=== PATIENT | female | born 1995 | race Caucasian/White ===

== ENCOUNTER 2017-10-25 00:20 | Emergency (ER) | payer MEDICAID ==
[2017-10-25] MEDS ORDERED: ACETAMINOPHEN 325 MG TABLET PO ONE (01:17)
--- NOTE | 2017-10-25 01:19 | ER Document Report ---
ED Medical Screen (RME) - General Chief Complaint: Possible Kidney Stone Stated Complaint: FLANK PAIN Time Seen by Provider: 10/25/17 01:14 Mode of Arrival: Ambulatory Information source: Patient Notes: 22-year-old female presents to ED for complaint of right flank pain. She states she was recently admitted for a kidney infection. She is also 11 weeks . She states she just finished the antibiotics they gave her a couple days ago from the last infection. She denies any fevers at this time. Patient does not have any tenderness to palpation to the kidney area at this time. She is alert and oriented respirations regular and unlabored speaking in full sentences. I have greeted and performed a rapid initial assessment of this patient. A comprehensive ED assessment and evaluation of the patient, analysis of test results and completion of medical decision making process will be conducted by an additional ED providers. TRAVEL OUTSIDE OF THE [place] IN LAST 30 DAYS: No - Related Data Allergies/Adverse Reactions: No Known Allergies Allergy (Verified 10/25/17 00:25) Past Medical History - Social History Chew tobacco use (# tins/day): No Frequency of alcohol use: None Drug Abuse: None Pulmonary Medical History: Reports: Hx Asthma Renal/ Medical History: Denies: Hx Peritoneal Dialysis Psychiatric Medical History: Denies: Hx Depression Past Surgical History: Reports: Hx Tonsillectomy - Addenoids as well. - Immunizations Immunizations up to date: Yes Hx Diphtheria, Pertussis, Tetanus Vaccination: Yes Physical Exam - Vital signs Vitals: Temp Pulse Resp BP Pulse Ox 97.6 F 100 18 112/61 99 10/25/17 00:35 10/25/17 00:35 10/25/17 00:35 10/25/17 00:35 10/25/17 00:35 Course - Vital Signs Vital signs: Temp Pulse Resp BP Pulse Ox 97.6 F 100 18 112/61 99 10/25/17 00:35 10/25/17 00:35 10/25/17 00:35 10/25/17 00:35 10/25/17 00:35
[2017-10-25 01:40] LABS: ABSOLUTE BASOPHILS # (AUTO) 0.1 10^3/uL (0.0-0.2); ABSOLUTE EOSINOPHILS # (AUTO) 0.1 10^3/uL (0.0-0.6); ABSOLUTE LYMPHOCYTES (AUTO) 1.9 10^3/uL (0.5-4.7); ABSOLUTE MONOCYTES (AUTO) 0.7 10^3/uL (0.1-1.4); ABSOLUTE NEUT (AUTO) 13.6 10^3/uL (1.7-8.2); BASOPHILS % (AUTO) 0.3 % (0-2); EOSINOPHILS % (AUTO) 0.3 % (0-6); HEMOGLOBIN 13.9 g/dL (12.0-15.5); LYMPHOCYTES % (AUTO) 11.4 % (13-45); MEAN CORPUSCULAR HGB CONC 34.6 g/dL (32.0-36.0); MEAN CORPUSCULAR VOLUME 87 fl (80-97); MONOCYTES % (AUTO) 4.4 % (3-13); PLATELET COUNT 287 10^3/uL (150-450); RED BLOOD COUNT 4.62 10^6/uL (3.72-5.28); RED CELL DISTRIBUTION WIDTH 12.6 % (11.5-14.0); SEGMENTED NEUTROPHILS % (AUTO) 83.6 % (42-78); TOTAL CELLS COUNTED % (AUTO) 100 %; WHITE BLOOD COUNT 16.2 10^3/uL (4.0-10.5)
[2017-10-25 01:59] LABS: APPEARANCE,URINE CLOUDY; BILIRUBIN,URINE NEGATIVE (NEGATIVE); COLOR,URINE DARK YELLOW; GLUCOSE, URINE NEGATIVE (NEGATIVE); KETONES,URINE NEGATIVE (NEGATIVE); NITRITE,URINE POSITIVE (NEGATIVE); PROTEIN,URINE >=500 mg/dL (NEGATIVE); URINE SPECIFIC GRAVITY 1.016; UROBILINOGEN,URINE NEGATIVE mg/dL (<2.0)
[2017-10-25 02:00] LABS: LEUKOCYTE ESTERASE,URINE LARGE (NEGATIVE)
[2017-10-25 02:02] LABS: ALANINE AMINOTRANSFERASE 15 U/L (9-52); ALKALINE PHOSPHATASE 48 U/L (38-126); ANION GAP 9 (5-19); ASPARTATE AMINO TRANSFERASE 13 U/L (14-36); BILIRUBIN,DIRECT 0.4 mg/dL (0.0-0.4); BILIRUBIN,TOTAL 0.4 mg/dL (0.2-1.3); BLOOD UREA NITROGEN 11 mg/dL (7-20); CALCIUM 9.6 mg/dL (8.4-10.2); CARBON DIOXIDE 24 mmol/L (22-30); CHLORIDE 105 mmol/L (98-107); GLUCOSE 102 mg/dL (75-110); POTASSIUM 3.5 mmol/L (3.6-5.0); SODIUM 137.8 mmol/L (137-145)
[2017-10-25] MEDS ORDERED: CEFTRIAXONE INJ 1000 MG VIAL IV ONE (05:21)
[2017-10-25] MEDS ORDERED: NORMAL SALINE 1000 ML 1,000 ML IV ONE ×2 (05:22→06:29)
--- NOTE | 2017-10-25 06:59 | ER Document Report ---
ED General - General Chief Complaint: Possible Kidney Stone Stated Complaint: FLANK PAIN Time Seen by Provider: 10/25/17 01:14 Mode of Arrival: Ambulatory TRAVEL OUTSIDE OF THE [place] IN LAST 30 DAYS: No - HPI Patient complains to provider of: Kidney pain Onset: Other - 22-year-old female -year-old 11 week female presents for evaluation of pain along the right flank previously diagnoses urinary tract infection for which she was being treated with Keflex and subsequently sent home during an outpatient visit last week. She notes that since then she has had persistent pain, vomiting, fevers and chills. Nothing is seen to make any better, time seems to be making it worse. She has had kidney stone in the past this feels different from her previous kidney stone. - Related Data Allergies/Adverse Reactions: No Known Allergies Allergy (Verified 10/25/17 00:25) Past Medical History - General Information source: Patient - Social History Smoking Status: Never Smoker Chew tobacco use (# tins/day): No Frequency of alcohol use: None Drug Abuse: None Family History: Reviewed & Not Pertinent Patient has suicidal ideation: No Patient has homicidal ideation: No Pulmonary Medical History: Reports: Hx Asthma Renal/ Medical History: Denies: Hx Peritoneal Dialysis Psychiatric Medical History: Denies: Hx Depression Past Surgical History: Reports: Hx Tonsillectomy - Addenoids as well. - Immunizations Immunizations up to date: Yes Hx Diphtheria, Pertussis, Tetanus Vaccination: Yes Review of Systems - Review of Systems -: Yes All other systems reviewed and negative Physical Exam - Vital signs Vitals: Temp Pulse Resp BP Pulse Ox 97.6 F 100 18 112/61 99 10/25/17 00:35 10/25/17 00:35 10/25/17 00:35 10/25/17 00:35 10/25/17 00:35 - General General appearance: Appears well In distress: None - HEENT Head: Normocephalic Eyes: Normal Conjunctiva: Normal Cornea: Normal - Respiratory Respiratory status: No respiratory distress Chest status: Nontender Breath sounds: Normal Chest palpation: Normal - Cardiovascular Rhythm: Regular Heart sounds: Normal auscultation Murmur: No - Abdominal Inspection: Gravid female Distension: No distension Tenderness: Nontender - Back Back: Normal, CVA tenderness - Extremities General upper extremity: Normal inspection, Nontender, Normal ROM, Normal strength General lower extremity: Normal inspection, Nontender, Normal ROM, Normal strength - Neurological Neuro grossly intact: Yes Cognition: Normal Orientation: AAOx4 Ge Coma Scale Eye Opening: Spontaneous [place] Coma Scale Verbal: Oriented Ge Coma Scale Motor: Obeys Commands [place] Coma Scale Total: 15 Speech: Normal - Psychological Associated symptoms: Normal affect Course - Re-evaluation Re-evalutation: This young lady has a history of pyelonephritis in the past, 2 weeks prior was admitted for pyelonephritis as a result of being 9 weeks . She is evidence today of pyelonephritis again, she is leukocytosis as well as pyuria. She complains of some flank pain. We will obtain an ultrasound to assess for hydronephrosis or any evidence of stone. Patient does have modest hydronephrosis without any obvious evidence of stone or renal calculi. We will plan for conference with co founder and ceo regarding patient management. 10/25/17 09:58 Evidence of pyelonephritis. Spoke to Dr. Trejo on-call leather staker knows patient well states she will likely require treatment for her entire . We will plan for this patient to undergo discharge with Keflex prescription and encouraged follow-up in OB this week. Patient is well-appearing at the time of discharge afebrile able tolerate p.o. We will give prescription and follow-up with Dr. Trejo as we have discussed. 10/26/17 17:18 - Vital Signs Vital signs: Temp Pulse Resp BP Pulse Ox 97.9 F 81 18 91/50 L 100 10/25/17 11:00 10/25/17 11:00 10/25/17 11:00 10/25/17 11:00 10/25/17 11:00 - Laboratory Result Diagrams: 10/25/17 01:30 10/25/17 01:30 Laboratory results interpreted by me: 10/25/17 10/25/17 10/25/17 01:15 01:30 01:30 WBC 16.2 H Seg Neutrophils % 83.6 H Lymphocytes % 11.4 L Absolute Neutrophils 13.6 H Potassium 3.5 L AST 13 L Beta HCG, Quant 77350.00 H Urine Protein >=500 H Urine Blood SMALL H Urine Nitrite POSITIVE H Ur Leukocyte Esterase LARGE H Discharge - Discharge Clinical Impression: Pyelonephritis Leukocytosis, unspecified Qualifiers: Leukocytosis type: unspecified Qualified Code(s): D72.829 - Elevated white blood cell count, unspecified Condition: Stable Disposition: HOME, SELF-CARE Instructions: Acetaminophen, Antibiotic Therapy ([facility]), Pyelonephritis ([facility]) Prescriptions: Cephalexin Monohydrate [Keflex 500 mg Capsule] 500 mg PO Q12H 5 Days #6 capsule Cephalexin Monohydrate [Keflex 500 mg Capsule] 500 mg PO Q12H 7 Days #14 capsule
--- NOTE | 2017-10-25 07:47 | RADIOLOGY REPORT (SQ) ---
EXAM DESCRIPTION: Renal ultrasound October 25, 2017 CLINICAL HISTORY: 22 years, Female, flank pain, eval kidney COMPARISON: Renal ultrasound October 13, 2017 TECHNIQUE: Utilizing a curved array transducer, real-time ultrasound evaluation of the bilateral kidneys and urinary bladder was performed. Color Doppler imaging was used assess vascular flow. FINDINGS: The right kidney measures 10.7 x 5.6 x 6.6 cm with cortical thickness of 1.2 . There is moderate right-sided hydronephrosis. There are no shadowing right renal calculi.. There are no grossly abnormal right renal masses. There is normal echogenicity of the right kidney relative to the adjacent liver. The left kidney measures 10.8 x 3.7 x 5.3 cm with cortical thickness of 1.2. There is no evidence of hydronephrosis or shadowing left renal calculi. There are no grossly abnormal masses identified. There is normal echogenicity of the left kidney relative to the adjacent spleen. Limited images of the urinary bladder demonstrate no gross abnormalities. There is limited evaluation of the patient having uterus. The proximal aorta measures 1.3 cm. The mid aorta measures 0.9 cm. The distal aorta measures 0.8 cm. There is normal smooth tapering of the abdominal aorta. The IVC is grossly normal in appearance. IMPRESSION: 1. Stable moderate right-sided hydronephrosis without shadowing renal calculi.. 2. Normal left kidney..
[2017-10-25 11:01] VITALS: BP 91/50
== END 2017-10-25 11:53 | disposition home or self-care (01) ==
LOC: ER 00:20
DX: O23.01 Infections of kidney in pregnancy, first trimester (principal); O21.9 Vomiting of pregnancy, unspecified; O99.89 Other specified diseases and conditions complicating pregnancy, childbirth and the puerperium; N13.30 Unspecified hydronephrosis; O26.891 Other specified pregnancy related conditions, first trimester; R50.9 Fever, unspecified; O99.511 Diseases of the respiratory system complicating pregnancy, first trimester; J45.909 Unspecified asthma, uncomplicated; Z3A.11 11 weeks gestation of pregnancy; Z87.442 Personal history of urinary calculi
CPT/HCPCS: 99284; 96361; 96365; 36415; 87086; 84702; 85025; 87088; 80053; 81001; 87186; 76775; J3490; J0696